=== PATIENT | male | born 1940 | race Asian ===

== ENCOUNTER 2017-05-07 12:44 | Inpatient (IN) | payer MEDICARE, OTHER ==
[2017-05-07] MEDS: METOPROLOL (XL) 25 MG TAB PO ×2 (00:59→20:07)
[2017-05-07 13:47] LABS: ADD MAN DIFF? NO
[2017-05-07 13:52] LABS: BASOPHILS % 0.5 % (0.0-2.0); EOSINOPHILS # 0.1 10^3/ul (0.0-0.5); EOSINOPHILS % 1.4 % (0.0-7.0); HEMOGLOBIN 16.7 g/dl (14.0-18.0); LYMPHOCYTES # 2.3 10^3/ul (0.8-2.9); LYMPHOCYTES % 29.3 % (15.0-51.0); MEAN CORPUSCULAR HEMOGLOBIN 33.8 pg (29.0-33.0); MEAN CORPUSCULAR HGB CONC 33.4 g/dl (32.0-37.0); MEAN CORPUSCULAR VOLUME 101.2 fl (82.0-101.0); MEAN PLATELET VOLUME 9.3 fl (7.4-10.4); MONOCYTE # 0.9 10^3/ul (0.3-0.9); MONOCYTES % 11.5 % (0.0-11.0); NEUTROPHIL # 4.5 10^3/ul (1.6-7.5); PLATELET COUNT 194 10^3/UL (140-415); RED BLOOD COUNT 4.94 10^6/ul (4.70-6.10); RED CELL DISTRIBUTION WIDTH 12.5 % (11.5-14.5)
[2017-05-07 13:52] LABS: WHITE BLOOD COUNT 7.9 10^3/ul (4.8-10.8)
[2017-05-07 14:05] LABS: INR 0.87; PROTIME 11.9 Sec (11.9-14.9); PT RATIO 0.9
[2017-05-07 14:06] LABS: PARTIAL THROMBOPLASTIN TIME 31.9 Sec (25.0-35.0)
[2017-05-07 14:09] LABS: ALANINE AMINOTRANSFERASE 37 IU/L (13-69); ALBUMIN 4.8 g/dl (3.3-4.9); ALBUMIN/GLOBULIN RATIO 1.14; ALKALINE PHOSPHATASE 104 IU/L (42-121); AMYLASE 96 U/L (11-123); ANION GAP 18 (8-16); ASPARTATE AMINO TRANSFERASE 33 IU/L (15-46); BILIRUBIN,INDIRECT 0.3 mg/dl (0-1.1); BILIRUBIN,TOTAL 0.3 mg/dl (0.2-1.3); BLOOD UREA NITROGEN 14 mg/dl (7-20); CALCIUM 9.4 mg/dl (8.4-10.2); CARBON DIOXIDE 27 mmol/L (21-31); CHLORIDE 104 mmol/L (97-110); CREATININE 1.15 mg/dl (0.61-1.24); GLUCOSE 118 mg/dl (70-220); LIPASE 96 U/L (23-300); SODIUM 145 mmol/L (135-144)
[2017-05-07 14:20] LABS: TROPONIN-I < 0.012 ng/ml (0.00-0.12)
[2017-05-07] MEDS: SOD CHLORIDE 0.9% 100 ML (14:51)
[2017-05-07] MEDS: IODIXANOL LOCM 100 ML BTL (14:51)
[2017-05-07] MEDS ORDERED: ACETAMINOPHEN 325 MG TAB PO (16:00)
[2017-05-07] MEDS ORDERED: ONDANSETRON 4 MG INJ IV (16:00)
[2017-05-07] MEDS ORDERED: METOPROLOL 5 MG INJ IV (22:30)
[2017-05-08] MEDS: D5W-0.45 NACL + KCL 20 MEQ 1,000 ML IV ×2 (00:59→12:48)
[2017-05-08 08:21] LABS: ADD MAN DIFF? NO
[2017-05-08 08:30] LABS: BASOPHILS % 0.4 % (0.0-2.0); EOSINOPHILS # 0.2 10^3/ul (0.0-0.5); EOSINOPHILS % 2.4 % (0.0-7.0); HEMATOCRIT 43.4 % (42.0-52.0); HEMOGLOBIN 14.3 g/dl (14.0-18.0); LYMPHOCYTES # 2.1 10^3/ul (0.8-2.9); LYMPHOCYTES % 29.7 % (15.0-51.0); MEAN CORPUSCULAR HEMOGLOBIN 33.7 pg (29.0-33.0); MEAN CORPUSCULAR HGB CONC 32.9 g/dl (32.0-37.0); MEAN CORPUSCULAR VOLUME 102.4 fl (82.0-101.0); MEAN PLATELET VOLUME 9.6 fl (7.4-10.4); MONOCYTES % 13.6 % (0.0-11.0); NEUTROPHIL # 3.7 10^3/ul (1.6-7.5); NEUTROPHILS % 53.5 % (39.0-77.0); PLATELET COUNT 165 10^3/UL (140-415); RED BLOOD COUNT 4.24 10^6/ul (4.70-6.10); RED CELL DISTRIBUTION WIDTH 12.6 % (11.5-14.5)
[2017-05-08] MEDS: EZETIMIBE 10 MG TAB PO (08:35)
[2017-05-08] MEDS: METOPROLOL (XL) 25 MG TAB PO (08:35)
[2017-05-08] MEDS: AMLODIPINE 5 MG TAB PO (08:36)
[2017-05-08] MEDS: LISINOPRIL 20 MG TAB PO (08:36)
[2017-05-08] MEDS: ASPIRIN 81 MG TAB PO (08:36)
[2017-05-08 08:47] LABS: ANION GAP 12 (8-16); BLOOD UREA NITROGEN 12 mg/dl (7-20); CALCIUM 8.9 mg/dl (8.4-10.2); CARBON DIOXIDE 28 mmol/L (21-31); CHLORIDE 105 mmol/L (97-110); CHOL/HDL RATIO 3.9 RATIO; CHOLESTEROL 168 mg/dl (100-200); CREATININE 1.17 mg/dl (0.61-1.24); GLUCOSE 120 mg/dl (70-220); HDL CHOLESTEROL 43 mg/dl (31-75); LDL CHOLESTEROL,CALCULATED 105 mg/dl; POTASSIUM 4.4 mmol/L (3.5-5.1); SODIUM 141 mmol/L (135-144); TRIGLYCERIDES 102 mg/dl (0-149)
[2017-05-08 09:04] LABS: FREE T4 (FREE THYROXINE) 0.97 ng/dl (0.85-1.93)
[2017-05-08] MEDS: ATORVASTATIN 20 MG TAB PO (21:59)
[2017-05-09] MEDS: EZETIMIBE 10 MG TAB PO (09:55)
[2017-05-09] MEDS: ASPIRIN 81 MG TAB PO (09:55)
[2017-05-09] MEDS: LISINOPRIL 20 MG TAB PO (09:56)
[2017-05-09] MEDS: METOPROLOL (XL) 25 MG TAB PO (09:56)
[2017-05-09] MEDS: AMLODIPINE 5 MG TAB PO (13:03)
[2017-05-10 06:22] LABS: ADD MAN DIFF? NO
[2017-05-10 06:39] LABS: BASOPHIL # 0.1 10^3/ul (0.0-0.1); BASOPHILS % 0.7 % (0.0-2.0); EOSINOPHILS # 0.2 10^3/ul (0.0-0.5); EOSINOPHILS % 2.6 % (0.0-7.0); HEMATOCRIT 45.3 % (42.0-52.0); HEMOGLOBIN 15.4 g/dl (14.0-18.0); LYMPHOCYTES # 3.1 10^3/ul (0.8-2.9); LYMPHOCYTES % 37.4 % (15.0-51.0); MEAN CORPUSCULAR HEMOGLOBIN 34.8 pg (29.0-33.0); MEAN CORPUSCULAR VOLUME 102.5 fl (82.0-101.0); MEAN PLATELET VOLUME 9.6 fl (7.4-10.4); MONOCYTE # 0.9 10^3/ul (0.3-0.9); MONOCYTES % 11.2 % (0.0-11.0); NEUTROPHILS % 47.7 % (39.0-77.0); PLATELET COUNT 165 10^3/UL (140-415); RED BLOOD COUNT 4.42 10^6/ul (4.70-6.10); RED CELL DISTRIBUTION WIDTH 12.7 % (11.5-14.5)
[2017-05-10 06:39] LABS: WHITE BLOOD COUNT 8.4 10^3/ul (4.8-10.8)
[2017-05-10 06:58] LABS: ANION GAP 17 (8-16); BLOOD UREA NITROGEN 17 mg/dl (7-20); CALCIUM 9.1 mg/dl (8.4-10.2); CARBON DIOXIDE 27 mmol/L (21-31); CHLORIDE 105 mmol/L (97-110); CREATININE 1.26 mg/dl (0.61-1.24); GLUCOSE 128 mg/dl (70-220); POTASSIUM 4.5 mmol/L (3.5-5.1); SODIUM 144 mmol/L (135-144)
[2017-05-10] MEDS: METOPROLOL (XL) 25 MG TAB PO ×2 (09:00→09:56)
[2017-05-10] MEDS: EZETIMIBE 10 MG TAB PO (09:56)
[2017-05-10] MEDS: LISINOPRIL 20 MG TAB PO (09:57)
[2017-05-10] MEDS: ASPIRIN 81 MG TAB PO (09:58)
[2017-05-10] MEDS: AMLODIPINE 5 MG TAB PO (09:58)
[2017-05-11] MEDS: ASPIRIN 81 MG TAB PO (08:23)
[2017-05-11] MEDS: EZETIMIBE 10 MG TAB PO (08:23)
[2017-05-11] MEDS: METOPROLOL (XL) 25 MG TAB PO (08:27)
[2017-05-11] MEDS: LISINOPRIL 20 MG TAB PO (08:27)
[2017-05-11] MEDS: AMLODIPINE 5 MG TAB PO (08:28)
== END 2017-05-11 13:27 | disposition home or self-care (01) | DRG 300 ==
LOC: E/R 12:44 → TEL 15:41
DX: I71.4 Abdominal aortic aneurysm, without rupture (principal); I74.09 Other arterial embolism and thrombosis of abdominal aorta; I10 Essential (primary) hypertension; I70.1 Atherosclerosis of renal artery; I25.10 Atherosclerotic heart disease of native coronary artery without angina pectoris; E78.5 Hyperlipidemia, unspecified; Z87.891 Personal history of nicotine dependence
CPT/HCPCS: 71275; 75635; 80048; 80053; 80061; 82150; 82962; 83690; 84439; 84443; 84484; 85025; 85610; 85730; 86850; 86900; 86901; 87040; 93005; 93306; 99285-25